=== PATIENT | female | born 1940 | race Caucasian/White ===

== ENCOUNTER 2022-03-20 08:59 | Inpatient (IN) ==
--- NOTE | 2022-03-20 09:54 | Emergency Department Note ---
SOB HPI General Chief Complaint: Shortness of Breath/Dyspnea Stated Complaint: SOB Time Seen by Provider: 03/20/22 09:33 Source: patient Mode of arrival: ambulatory Limitations: no limitations History of Present Illness HPI Narrative: Narrative: 81-year-old female history of asthma presents chief complaint of shortness of breath and cough productive of yellow-green sputum for the last week. She was seen by her primary doctor 2 days ago and prescribed doxycycline with no improvement in her symptoms peer denies any chest pain denies any fevers chills denies any headache or body aches denies any vomiting or diarrhea. Symptoms are worse with exertion. She has some chronic lower extremity edema which is uncha nged. Denies history of congestive heart failure. She has not been vaccinated against COVID-19 or influenza but did have a negative COVID-19 test at her doctor's office couple days ago. Related Data Previous Rx's Medication Instructions Recorded albuterol sulfate 90 mcg/actuation 2 puff INHALATION Q6H PRN #18 g 03/12/22 aerosol inhaler (ProAir HFA) hydrocodone 5 mg-acetaminophen 325 1 tab PO BID PRN #30 tab 03/14/22 mg tablet doxycycline hyclate 100 mg tablet 100 mg PO BID #20 tab 03/18/22 Allergies Allergy/AdvReac Type Severity Reaction Status Date / Time aspirin Allergy Severe Difficulty Verified 03/20/22 14:16 Breathing Review of Systems ROS ROS Narrative: Narrative: All systems ED: reviewed and negative except as stated. Constitutional: Denies fever, chills or sweats Eyes: Denies vision change ENT ED: Denies throat pain or congestion Cardiovascular: Reports as per HPI; Denies chest pain Gastrointestinal: Denies abdominal pain, vomiting or diarrhea Musculoskeletal: Denies back pain or joint pain Integumentary: Denies rash Neurological: Denies headache or dizziness Psychiatric: Denies anxiety, suicidal thoughts or homicidal thoughts Endocrine: Denies polydipsia or polyuria Hematological/Lymphatic: Denies easy bleeding or easy bruising [facility] Narrative Patient History Narrative: Narrative: Medical/Surgical/Family History All Active Problems (Updated 03/20/22 @ 13:39 by Maynor Ramírez MD) CHF (congestive heart failure) (Acute) Pneumonia (Acute) Acute bronchitis (Acute) Bilateral lower extremity edema (Acute) Edema (Acute) Essential hypertension (Acute) Medicare annual wellness visit, initial (Acute) Bilateral leg weakness (Acute) Left knee pain (Acute) Degenerative joint disease of both hips (Acute) Pelvic pain (Acute) Bilateral hip pain (Acute) Asthma (Chronic ~1972) Medical History Asthma (~1972) Bilateral leg weakness Left knee pain Medicare annual wellness visit, initial Surgical History H/O colonoscopy Dr. Goode History of tonsillectomy and adenoidectomy 194 Family History Father Non Hodgkin's lymphoma Mother H/O heart bypass surgery Social History Smoking Status: Never smoker Alcohol Intake Frequency: does not drink Substance Use: does not use Exam Narrative Narrative: Narrative: Vital Signs reviewed. Constitutional: Awake alert no acute distress well-nourished well-developed Head: Normocephalic, atraumatic Eyes: PERRLA, EOMI, no conjunctivitis Ear: Normal canals and TM's Oropharynx: moist oral mucosa, no edema, no erythema, no exudate Neck: Supple, no lymphadenopathy, no JVD Lungs: Breathing unlabored, diminished breath sounds with bibasilar crackles Cardiac: Regular rate and rhythm, normal distal pulses, GI: Soft nontender nondistended no guarding no rebound Musculoskeletal: No tenderness, no deformities, trace pedal edema chronic stasis changes in the legs full range of motion Back: no CVA or midline tenderness Neuro: Awake alert, cranial nerves II through XII grossly intact, no focal motor or sensory deficits Psychiatric: Normal mood and affect Skin: Warm dry no rash, cap refill less than 2 seconds General Limitations: no limitations Course Consultations Consultation #1: Discussed with hospitalist Dr. Parekh who agrees admit patient. Time: 13:49 Vital Signs Vital signs: Vital Signs Temperature 98.2 F 03/20/22 09:01 Pulse Rate 91 H 03/20/22 09:01 Respiratory Rate 18 03/20/22 09:01 Blood Pressure 164/93 03/20/22 09:01 Pulse Oximetry (%) 88 L 03/20/22 09:01 Temperature 98.2 F 03/20/22 09:01 Pulse Rate 81 03/20/22 15:01 Respiratory Rate 18 03/20/22 09:01 Blood Pressure 94/79 03/20/22 15:01 Pulse Oximetry (%) 99 03/20/22 15:01 MDM MDM Narrative Medical decision making narrative: Narrative: 81-year-old female with productive cough shortness of breath the last week seen her primary doctor 2 days ago was her on doxycycline. Symptoms did not improve was found to hypoxic on room air at the office. Patient put on 2 L nasal cannula with improvement in sats chest x-ray shows new onset CHF and bilateral infiltrates. proBNP slightly elevated troponin negative. EKG showed no acute ischemic changes. Patient received Rocephin and Lasix and will be admitted for the valuation treatment. Case discussed with the hospitalist Dr. Parekh who agrees admit patient. Differential Diagnosis Differential Diagnosis: Pneumonia bronchitis CHF, COVID-19 Lab Data Result diagrams: 03/20/22 10:10 03/20/22 10:10 Labs: Lab Results 03/20/22 03/20/22 03/20/22 Range/Units 10:10 10:10 10:10 WBC 10.5 (4.5-11.0) K/mcL RBC 4.07 (3.59-5.38) M/mcL Hgb 12.6 (11.2-15.7) g/dL Hct 37.7 (34.1-44.9) % MCV 92.6 (80.0-100.0) fL MCH 31.0 (26.0-34.0) pg MCHC 33.4 (31.0-36.0) g/dL RDW 13.1 (11.5-14.5) % Plt Count 404 (140-440) K/mcL MPV 9.8 (7.4-10.4) fL Seg Neutrophils % 78 (38-78) % Lymphocytes % 13 L (15-49) % Monocytes % (Manual) 9 (1-12) % Platelet Estimate Normal (Normal) RBC Morphology Normal (Normal) Sodium 130 L (133-145) mmol/L Potassium 4.1 (3.3-5.1) mmol/L Chloride 90 L (96-108) mmol/L Carbon Dioxide 29 (22-30) mmol/L Anion Gap 11.0 (8.0-16.0) BUN 5 L (8-23) mg/dL Creatinine 0.4 L (0.6-1.1) mg/dL GFR Calculation 97 Glucose 115 H (70-105) mg/dL Calcium 9.9 (8.6-10.4) mg/dL Total Bilirubin 0.4 (0.1-1.0) mg/dL AST 26 (<32) U/L ALT 23 (<40) U/L Alkaline Phosphatase 117 (39-117) U/L Troponin T < 0.01 (<0.03) ng/mL NT-Pro-B Natriuret Pep 581.7 H (<450.0) pg/mL Total Protein 6.9 (5.9-8.4) gm/dL Albumin 3.7 (3.2-5.2) gm/dL Globulin 3.2 (2.2-3.7) gm/dL Albumin/Globulin Ratio 1.2 (1.0-2.3) ED POC Tests ED POC Tests: SHANE - SARS Antigen Negative EKG Data EKG #1: EKG attestation: Yes I reviewed and interpreted this EKG. and Yes There are no EKG findings of acute coronary syndrome EKG results narrative: EKG performed at 936 shows sinus rhythm rate of 83 with normal axis PAC present short IN interval no acute ST changes Discharge Plan Patient/Caregiver Discharge Instructions Pt seen by FLUTE POLISHER/PA only: No Clinical Impression: CHF (congestive heart failure), Pneumonia Patient Disposition: Xfer As Inpt ([facility]) Condition: Good Discharge Date/Time: 03/20/22 15:29
--- NOTE | 2022-03-20 10:28 | XRay Report ---
CLINICAL INFORMATION: Dyspnea COMPARISON: Two-view chest x-ray 03/18/2022 TECHNIQUE: Portable FINDINGS: The heart is now borderline enlarged. Mediastinum is unremarkable. The pulmonary vessels are now mildly congested and there is mild interstitial edema throughout both lungs. Small patchy infiltrates in both lateral bases have progressed. There are small bilateral pleural effusions. Malunified old posterior right sixth rib fracture is seen as before. IMPRESSION: Mild CHF-new Moderate patchy infiltrates both lateral bases and small effusions-slight progression Moderate COPD Interpreted and Authenticated by: Matthew Lewis 03/20/22
[2022-03-20 11:42] LABS: Hematocrit 37.7 % (34.1-44.9); Hemoglobin 12.6 g/dL (11.2-15.7); Mean Cell Volume 92.6 fL (80.0-100.0); Mean Corpuscular HGB Conc 33.4 g/dL (31.0-36.0); Mean Platelet Volume 9.8 fL (7.4-10.4); Platelet Count 404 K/mcL (140-440); RBC 4.07 M/mcL (3.59-5.38); Red Cell Distribution Width 13.1 % (11.5-14.5); WBC 10.5 K/mcL (4.5-11.0)
[2022-03-20 11:52] LABS: proBNP 581.7 pg/mL (<450.0)
[2022-03-20 11:54] LABS: ALT/SGPT 23 U/L (<40); AST/SGOT 26 U/L (<32); Albumin 3.7 gm/dL (3.2-5.2); Albumin/Globulin Ratio 1.2 (1.0-2.3); Alkaline Phosphatase 117 U/L (39-117); Bilirubin,Total 0.4 mg/dL (0.1-1.0); Blood Urea Nitrogen 5 mg/dL (8-23); Calcium 9.9 mg/dL (8.6-10.4); Carbon Dioxide 29 mmol/L (22-30); Chloride 90 mmol/L (96-108); Globulin 3.2 gm/dL (2.2-3.7); Glomerular Filtration Rate 97; Glucose 115 mg/dL (70-105)
[2022-03-20 12:31] LABS: Lymphocytes % 13 % (15-49); Monocytes % (Manual) 9 % (1-12); Platelet Estimate NORMAL (Normal); RBC Morphology NORMAL (Normal); Segmented Neutrophils % 78 % (38-78)
[2022-03-20] MEDS ORDERED: cefTRIAXone 1 GM VIAL IV ONE (13:00)
[2022-03-20] MEDS ORDERED: FUROSEMIDE 40 MG/4 ML VIAL IV ONE (13:01)
[2022-03-20] MEDS ORDERED: ALBUTEROL SULFATE 2.5 MG/3 ML NEBULIZER NEB PRN (13:50)
[2022-03-20] MEDS ORDERED: MAG HYDROX/AL HYDROX/SIMETH 30 ML ORAL.SUSP PO PRN (13:50)
[2022-03-20] MEDS ORDERED: PROCHLORPERAZINE 10 MG/2 ML VIAL IV PRN (13:50)
[2022-03-20] MEDS ORDERED: ACETAMINOPHEN 325 MG TABLET PO PRN (13:50)
[2022-03-20] MEDS ORDERED: BISACODYL 10 MG SUPP.RECT PR PRN (13:50)
[2022-03-20] MEDS ORDERED: ONDANSETRON 4 MG/2 ML VIAL IV PRN (13:50)
[2022-03-20] MEDS ORDERED: MAGNESIUM HYDROXIDE 30 ML ORAL.SUSP PO PRN (13:50)
[2022-03-20] MEDS ORDERED: CALCIUM CARBONATE 500 MG TAB.CHEW CHEWED PRN (13:50)
[2022-03-20] MEDS: 0.9 % SODIUM CHLORIDE 10 ML SYRINGE IV SCH ×2 (16:35→20:21)
[2022-03-20] MEDS: AZITHROMYCIN 500 MG in DEXTROSE 5% IN WATER 250 ML IV SCH (16:58)
[2022-03-20] MEDS: IPRATROPIUM/ALBUTEROL 3 ML AMPUL.NEB NEB SCH (19:26)
[2022-03-20] MEDS: DOCUSATE SODIUM 100 MG CAPSULE PO SCH (20:22)
[2022-03-20] MEDS: SENNOSIDES 1 TABLET PO SCH (20:22)
[2022-03-20] MEDS ORDERED: DEXTROSE 31 GM ORAL.SUSP PO PRN (22:16)
[2022-03-20] MEDS ORDERED: traMADol 50 MG TABLET PO PRN (22:16)
[2022-03-20] MEDS ORDERED: QUEtiapine 25 MG TABLET PO PRN ×2 (22:16→22:38)
[2022-03-20] MEDS ORDERED: DEXTROSE 50% 50 ML VIAL IV PRN (22:16)
[2022-03-20] MEDS ORDERED: ZOLPIDEM 5 MG TABLET PO PRN (22:18)
[2022-03-20] MEDS ORDERED: INSULIN LISPRO 1 UNIT/0.01 ML UNIT SQ SCH (22:20)
[2022-03-20] MEDS ORDERED: hydrALAZINE 20 MG/ML VIAL IV PRN (22:38)
[2022-03-20] MEDS ORDERED: DILTIAZEM 25 MG/5 ML VIAL IV PRN (22:38)
[2022-03-21] MEDS: IPRATROPIUM/ALBUTEROL 3 ML AMPUL.NEB NEB SCH ×5 (01:19→18:53)
[2022-03-21] MEDS: 0.9 % SODIUM CHLORIDE 10 ML SYRINGE IV SCH ×3 (05:50→22:05)
[2022-03-21 07:16] LABS: ALT/SGPT 20 U/L (<40); AST/SGOT 22 U/L (<32); Albumin 3.5 gm/dL (3.2-5.2); Albumin/Globulin Ratio 1.3 (1.0-2.3); Alkaline Phosphatase 101 U/L (39-117); Bilirubin,Total 0.3 mg/dL (0.1-1.0); Blood Urea Nitrogen 6 mg/dL (8-23); Calcium 9.3 mg/dL (8.6-10.4); Carbon Dioxide 30 mmol/L (22-30); Chloride 88 mmol/L (96-108); Globulin 2.6 gm/dL (2.2-3.7); Glomerular Filtration Rate 97; Glucose 93 mg/dL (70-105)
--- NOTE | 2022-03-21 08:27 | EKG ---
[facility] Minor Care Test Date: 2022-03-20 Pat Name: Yvette Lopez Department: ED Room: Gender: Female Fresh Food Manager: CHALINO` : 1940 Requested By: Maynor Ramírez Order Number: [id number] Reading MD: Poncho Pedraza Measurements Intervals [place] Rate: 83 P: 84 OR: 94 QRS: 46 QRSD: 76 T: 49 QT: 350 QTc: 412 Interpretive Statements Sinus rhythm Atrial premature complex Short OR interval Electronically Signed On 03-21-2022 8:27:12 PDT by Poncho Pedraza /[facility]/M0/[id number].pdf
[2022-03-21 08:47] LABS: Basophils # (Auto) 0.05 K/mcL (0.00-0.30); Basophils % (Auto) 0.6 % (0.0-2.0); Eosinophils # (Auto) 0.08 K/mcL (0.00-0.70); Hematocrit 37.2 % (34.1-44.9); Hemoglobin 11.7 g/dL (11.2-15.7); Lymphocytes % (Auto) 8.3 % (15.5-49.0); Mean Cell Volume 97.6 fL (80.0-100.0); Mean Corpuscular HGB Conc 31.5 g/dL (31.0-36.0); Mean Platelet Volume 9.1 fL (7.4-10.4); Monocytes % (Auto) 11.9 % (1.0-12.0); Neutrophils % (Auto) 78.2 % (38.0-78.0); Platelet Count 363 K/mcL (140-440); RBC 3.81 M/mcL (3.59-5.38); Red Cell Distribution Width 13.2 % (11.5-14.5); WBC 8.4 K/mcL (4.5-11.0)
[2022-03-21] MEDS ORDERED: cefTRIAXone 2 GM in DEXTROSE 5% IN WATER 50 ML IV SCH (09:00)
[2022-03-21] MEDS: PANTOPRAZOLE 40 MG TABLET PO SCH (09:02)
[2022-03-21] MEDS: cefTRIAXone 2 GM in DEXTROSE 5% IN WATER 50 ML IV SCH (09:02)
[2022-03-21] MEDS: DOCUSATE SODIUM 100 MG CAPSULE PO SCH ×2 (09:03→22:06)
[2022-03-21] MEDS: ENOXAPARIN 40 MG/0.4 ML SYRINGE SQ SCH (09:08)
[2022-03-21] MEDS: AZITHROMYCIN 500 MG in DEXTROSE 5% IN WATER 250 ML IV SCH (11:18)
[2022-03-21] MEDS: predniSONE 20 MG TABLET PO SCH (12:55)
--- NOTE | 2022-03-21 14:38 | Internal Med History&Physical ---
HPI History of Present Illness Patient information: Note initiated : 03/20/22 at 2:37 pm Service Date, if different from initiated Date: 03/20/22 Patient: Yvette Lopez 81 y/o F admitted on 03/20/22 for Shortness of breath. Chief Complaint: [] History of present illness: Ms. Lopez is a 81 year old F This is a 81-year-old female with a history of chronic lower extremity edema, essential hypertension, previous history of reported pneumonia was brought to the ER with complaints of shortness of breath and productive cough and green- yellow sputum for the last 1 week patient was seen by the primary care provider 2 days ago started on doxycycline without any improvement and patient was transferred to the ER for further management upon arrival patient had history of chronic lower extremity edema no acute worsening patient denied any history congestive heart failure. Her work-up in the emergency room showed evidence of pneumonia on chest x-ray her proBNP was slightly elevated and also given 1 dose of Lasix in the ER and admitted for further management. Patient was hypoxic 87% on room air needing nasal cannula oxygen Review of systems Constitutional: No reported fatigue no chills, no fever Eyes: no vision changes or pain Cardiovascular: no chest pain, no palpitations Respiratory: no cough or dyspnea Gastrointestinal: no nausea and stil have abdominal discomfort. Genitourinary: no dysuria or difficulty voiding Musculoskeletal: no arthralgia or myalgia Integumentary: no skin lesion or wound Neurological: no focal weakness or numbness Psychiatric: no anxiety or depression Physical exam Head: No bruises, normal-appearing nontraumatic Eyes: normal appearance, no scleral icterus. Neck: full ROM Respiratory: Mild distress, crackles more on the left side Cardiovascular: normal rate and rhythm, S1, S2. GI/Abdominal: soft, nontender, no guarding. Extremities: full range of motion, nontender. Neurological: CN II-XII intact, intact motor, intact sensation. Psychiatric: normal mood. Skin: warm, normal color PFSH PFSH All Active Problems (Updated 03/20/22 @ 13:39 by Maynor Ramírez MD) CHF (congestive heart failure) (Acute) Pneumonia (Acute) Acute bronchitis (Acute) Bilateral lower extremity edema (Acute) Edema (Acute) Essential hypertension (Acute) Medicare annual wellness visit, initial (Acute) Bilateral leg weakness (Acute) Left knee pain (Acute) Degenerative joint disease of both hips (Acute) Pelvic pain (Acute) Bilateral hip pain (Acute) Asthma (Chronic ~1972) Medical History Asthma (~1972) Bilateral leg weakness Left knee pain Medicare annual wellness visit, initial Surgical History H/O colonoscopy Dr. Goode History of tonsillectomy and adenoidectomy 194 Family History Father Non Hodgkin's lymphoma Mother H/O heart bypass surgery Social History marital status: occupation: Real Estate other: Children-2 smoking status: Never smoker alcohol intake frequency: does not drink substance use type: does not use MEDS/ALLERGIES Home Medications and Allergies Home Medications Medication Instructions Recorded Confirmed Type albuterol sulfate 90 mcg/actuation 2 puff INHALATION Q6H PRN #18 g 03/12/22 03/21/22 Rx aerosol inhaler (ProAir HFA) hydrocodone 5 mg-acetaminophen 325 1 tab PO BID PRN #30 tab 03/14/22 03/21/22 Rx mg tablet doxycycline hyclate 100 mg tablet 100 mg PO BID #20 tab 03/18/22 03/21/22 Rx Allergies Allergy/AdvReac Type Severity Reaction Status Date / Time aspirin Allergy Severe Difficulty Verified 03/20/22 14:16 Breathing EXAM Constitutional Vitals: Temp Pulse Resp BP Pulse Ox 98.3 F 88 20 132/73 91 03/21/22 11:25 03/21/22 14:03 03/21/22 14:03 03/21/22 11:25 03/21/22 14:03 DATA Data Completed and Pending Labs: Labs from last 24 hours 03/21/22 03/21/22 03/21/22 07:34 05:48 05:48 WBC 8.4 TNP RBC 3.81 TNP Hgb 11.7 TNP Hct 37.2 TNP MCV 97.6 TNP MCH 30.7 TNP MCHC 31.5 TNP RDW 13.2 TNP Plt Count 363 TNP MPV 9.1 TNP Neut % (Auto) 78.2 H TNP Lymph % (Auto) 8.3 L TNP [place] % (Auto) 11.9 TNP Eos % (Auto) 1.0 TNP Baso % (Auto) 0.6 TNP Lymph # (Auto) 0.70 L TNP [place] # (Auto) 1.00 H TNP Eos # (Auto) 0.08 TNP Baso # (Auto) 0.05 TNP Absolute Neutrophils 6.58 TNP Differential Comment TNP Sodium 131 L Potassium 3.9 Chloride 88 L Carbon Dioxide 30 Anion Gap 13.0 BUN 6 L Creatinine 0.4 L GFR Calculation 97 Glucose 93 Calcium 9.3 Magnesium 1.9 Total Bilirubin 0.3 AST 22 ALT 20 Alkaline Phosphatase 101 Total Protein 6.1 Albumin 3.5 Globulin 2.6 Albumin/Globulin Ratio 1.3 Preliminary micro results at discharge 03/20/22 10:25 Blood Culture - Preliminary Blood 03/20/22 10:15 Blood Culture - Preliminary Blood 03/21/22 04:02 Gram Stain - Preliminary Sputum source - Induced A/P Narrative Plan of Treatment: Acute hypoxemic respiratory failure Community-acquired pneumonia History of chronic leg edema denied any history of CHF Mild leukocytosis increasing cough with the prior sputum production Procalcitonin elevated Sputum gram stain culture ordered Blood culture ordered in the ER COVID-19 PCR pending History of chronic leg edema No evidence of congestive heart failure Recent echocardiogram showing normal biventricular systolic function mild pulmonary hypertension otherwise unremarkable Essential hypertension Monitor her blood pressure and restart home medications Severe protein calorie malnutrition Encourage patient to good oral intake Follow-up with the dietitian DVT prophylaxis-subcu Lovenox CODE STATUS-full code Expect length of stay 2-3 midnights Time Spent With Patient Time: Total time spent is greater than 50% in coordination of care (as documented) at patient's floor/unit and/or counseling patient: Total time spent with greater than 50% in coordination of care (as documented) at patient's floor/unit and/or counseling patient:: 50 - 70 minutes Critical Care Time: No QUALITY VTE Deep Vein Thrombosis/Pulmonary Embolism Present on Admission: No
--- NOTE | 2022-03-21 14:39 | Internal Med Progress Note ---
SUBJECTIVE Subjective Patient information: Note initiated : 03/21/22 at 2:38 pm Service Date, if different from initiated Date: [] Patient: Yvette Lopez 81 y/o F admitted on 03/20/22 for Shortness of breath. Chief Complaint: [] Interval history: This is a 81-year-old female with a history of chronic lower extremity edema, essential hypertension, previous history of reported pneumonia was brought to the ER with complaints of shortness of breath and productive cough and green- yellow sputum for the last 1 week patient was seen by the primary care provider 2 days ago started on doxycycline without any improvement and patient was transferred to the ER for further management upon arrival patient had history of chronic lower extremity edema no acute worsening patient denied any history congestive heart failure. Her work-up in the emergency room showed evidence of pneumonia on chest x-ray her proBNP was slightly elevated and also given 1 dose of Lasix in the ER and admitted for further management. Patient was hypoxic 87% on room air needing nasal cannula oxygen 03/21 Oxygenation improving Patient is more alert awake answering questions Continued having cough improving Sputum culture blood culture pending Review of systems Constitutional: No reported fatigue no chills, no fever Eyes: no vision changes or pain Cardiovascular: no chest pain, no palpitations Respiratory: no cough or dyspnea Gastrointestinal: no nausea and stil have abdominal discomfort. Genitourinary: no dysuria or difficulty voiding Musculoskeletal: no arthralgia or myalgia Integumentary: no skin lesion or wound Neurological: no focal weakness or numbness Psychiatric: no anxiety or depression Physical exam Head: No bruises, normal-appearing nontraumatic Eyes: normal appearance, no scleral icterus. Neck: full ROM Respiratory: Mild distress, crackles more on the left side Cardiovascular: normal rate and rhythm, S1, S2. GI/Abdominal: soft, nontender, no guarding. Extremities: full range of motion, nontender. Neurological: CN II-XII intact, intact motor, intact sensation. Psychiatric: normal mood. Skin: warm, normal color Constitutional Vitals: Vital Signs Temp Pulse Resp BP Pulse Ox 98.3 F 88 20 132/73 91 03/21/22 11:25 03/21/22 14:03 03/21/22 14:03 03/21/22 11:25 03/21/22 14:03 Period Temp Pulse Resp BP Sys/Echavarria Pulse Ox Last 24 Hr 97.8 F-99.1 F 81-99 16-24 94-149/69-93 80-99 Intake and Output 03/21/22 03/21/22 03/21/22 05:59 13:59 21:59 Intake Total 1040 300 Output Total 2 Balance 1038 300 Weight 49.26 kg 49.26 kg Patient Weight 03/22/22 05:59 Weight 49.26 kg Intake & Output: Intake & Output 03/21/22 03/21/22 03/21/22 05:59 13:59 21:59 Intake Total 1040 300 Output Total 2 Balance 1038 300 Weight 49.26 kg 49.26 kg Intake: IV 300 Zithromax 500 mg In Dextrose 5% 250 in Water 250 ml @ 250 mls/hr IV Q24H BETO Rx#:[id number] Rocephin 2 gm In Dextrose 5% in 50 Water 50 ml @ 100 mls/hr IV Q24H BETO Rx#:[id number] Oral 1040 Output: # of times incontinent of urine 2 Other: Urine Appearance Clear Urine Color Bright Yellow Stool Size Small Small Stool Color Brown Brown Stool Consistency Soft Formed # Voids 1 1 # Bowel Movements 1 1 # of times incontinent of 0 Bowels OBJ DATA Labs CBC & Chem 7: 03/21/22 07:34 03/21/22 05:48 Labs: Abnormal Lab Results 03/21/22 03/21/22 03/20/22 07:34 05:48 10:10 Neut % (Auto) 78.2 H Lymph % (Auto) 8.3 L Lymph # (Auto) 0.70 L [place] # (Auto) 1.00 H Lymphocytes % Sodium 131 L 130 L Chloride 88 L 90 L BUN 6 L 5 L Creatinine 0.4 L 0.4 L Glucose 115 H NT-Pro-B Natriuret Pep 581.7 H 03/20/22 10:10 Neut % (Auto) Lymph % (Auto) Lymph # (Auto) [place] # (Auto) Lymphocytes % 13 L Sodium Chloride BUN Creatinine Glucose NT-Pro-B Natriuret Pep Meds: Medications Acetaminophen (Acetaminophen 325 Mg Tablet) 650 mg PO Q6HP PRN; Protocol PRN Reason: Per Pain Protocol/Fever > 101 Al Hydrox/Mg Hydrox/Simethicone (Mag Hydrox/Al Hydrox/Simeth 30 Ml Oral.Susp) 30 ml PO Q6HP PRN PRN Reason: Dyspepsia Albuterol Sulfate (Albuterol Sulfate 2.5 Mg/3 Ml Nebulizer) 2.5 mg NEB Q2HP PRN PRN Reason: Shortness Of Breath Albuterol/Ipratropium (Ipratropium/Albuterol 3 Ml Ampul.Neb) 3 ml NEB Q6HRT [facility] Last Admin: 03/21/22 14:01 Dose: 3 ml Documented by: Bisacodyl (Bisacodyl 10 Mg Supp.Rect) [address] Q2-3DAYS PRN PRN Reason: Constipation Calcium Carbonate/Glycine (Calcium Carbonate 500 Mg Tab.Chew) 1,000 mg CHEWED Q4HP PRN PRN Reason: Dyspepsia Diltiazem HCl (Diltiazem 25 Mg/5 Ml Vial) 10 mg IV Q4HP PRN PRN Reason: Tachyarrhythmias Docusate Sodium (Docusate Sodium 100 Mg Capsule) 100 mg PO BID [facility] Last Admin: 03/21/22 09:03 Dose: Not Given Documented by: Enoxaparin Sodium (Enoxaparin 40 Mg/0.4 Ml Syringe) 40 mg SQ DAILY [facility] Last Admin: 03/21/22 09:08 Dose: 40 mg Documented by: Hydralazine HCl (Hydralazine 20 Mg/Ml Vial) 10 mg IV Q4-6HP PRN PRN Reason: Hypertension Azithromycin 500 mg/ Dextrose 250 mls @ 250 mls/hr IV Q24H [facility]; Protocol Stop: 03/22/22 15:59 Last Infusion: 03/21/22 12:20 Dose: Infused Documented by: Ceftriaxone Sodium 2 gm/ (Dextrose) 50 mls @ 100 mls/hr IV Q24H [facility] Last Infusion: 03/21/22 09:35 Dose: Infused Documented by: Magnesium Hydroxide (Magnesium Hydroxide 30 Ml Oral.Susp) 30 ml PO DAILYP PRN PRN Reason: Constipation Melatonin (Melatonin 3 Mg Tablet) 3 mg PO HSP PRN PRN Reason: Insomnia Ondansetron HCl (Ondansetron 4 Mg/2 Ml Vial) 4 mg IV Q6HP PRN PRN Reason: Nausea And Vomiting Pantoprazole Sodium (Pantoprazole 40 Mg Tablet) 40 mg PO QAMAC [facility] Last Admin: 03/21/22 09:02 Dose: 40 mg Documented by: Pred[facility]one ([facility] 20 Mg Tablet) [facility] Admin: 03/21/22 12:55 Dose: 20 mg Documented by: Prochlorperazine (Prochlorperazine 10 Mg/2 Ml Vial) 5 mg IV Q4HP PRN PRN Reason: Nausea And Vomiting Quetiapine Fumarate (Quetiapine 25 Mg Tablet) 12.5 mg PO HSP PRN PRN Reason: iNSOMNIA-2nd option Senna (Sennosides 1 Tablet) 2 tab PO [facility] Last Admin: 03/20/22 20:22 Dose: Not Given Documented by: Sodium Chloride (0.9 % Sodium Chloride 10 Ml Syringe) 10 ml IV Q8 [facility] Last Admin: 03/21/22 05:50 Dose: 10 ml Documented by: A/P Narrative Plan of Treatment: Acute hypoxemic respiratory failure Community-acquired pneumonia History of chronic leg edema denied any history of CHF Mild leukocytosis increasing cough with the prior sputum production Continue ceftriaxone and azithromycin Continue weaning her oxygen need Procalcitonin elevated Sputum gram stain culture ordered Blood culture ordered in the ER COVID-19 PCR pending History of chronic leg edema No evidence of congestive heart failure Recent echocardiogram showing normal biventricular systolic function mild pulmonary hypertension otherwise unremarkable Essential hypertension Monitor her blood pressure and restart home medications Severe protein calorie malnutrition Encourage patient to good oral intake Follow-up with the dietitian DVT prophylaxis-subcu Lovenox CODE STATUS-full code Expect length of stay 2-3 midnights Time Spent With Patient Time: Total time spent is greater than 50% in coordination of care (as documented) at patient's floor/unit and/or counseling patient: QUALITY VTE Deep Vein Thrombosis/Pulmonary Embolism Present on Admission: No
[2022-03-21] MEDS: HYDROcodone/APAP 5/325MG TABLET PO PRN (22:04)
[2022-03-21] MEDS: MELATONIN 3 MG TABLET PO PRN (22:04)
[2022-03-21] MEDS: SENNOSIDES 1 TABLET PO SCH (22:06)
[2022-03-21] MEDS ORDERED: HYDROcodone/APAP 5/325MG TABLET PO ONE (22:09)
[2022-03-22] MEDS: IPRATROPIUM/ALBUTEROL 3 ML AMPUL.NEB NEB SCH ×4 (00:45→19:53)
[2022-03-22] MEDS: 0.9 % SODIUM CHLORIDE 10 ML SYRINGE IV SCH ×3 (05:49→21:41)
[2022-03-22 06:32] LABS: Basophils # (Auto) 0.04 K/mcL (0.00-0.30); Basophils % (Auto) 0.4 % (0.0-2.0); Eosinophils # (Auto) 0.03 K/mcL (0.00-0.70); Eosinophils % (Auto) 0.3 % (0.0-7.0); Hematocrit 36.8 % (34.1-44.9); Hemoglobin 12.1 g/dL (11.2-15.7); Lymphocytes # (Auto) 1.03 K/mcL (1.50-4.80); Lymphocytes % (Auto) 11.2 % (15.5-49.0); Mean Cell Volume 92.9 fL (80.0-100.0); Mean Corpuscular HGB Conc 32.9 g/dL (31.0-36.0); Mean Platelet Volume 9.2 fL (7.4-10.4); Monocytes # (Auto) 0.69 K/mcL (0.10-0.90); Monocytes % (Auto) 7.5 % (1.0-12.0); Neutrophils % (Auto) 80.6 % (38.0-78.0); Platelet Count 420 K/mcL (140-440); RBC 3.96 M/mcL (3.59-5.38); Red Cell Distribution Width 12.7 % (11.5-14.5); WBC 9.2 K/mcL (4.5-11.0)
[2022-03-22 06:58] LABS: ALT/SGPT 20 U/L (<40); AST/SGOT 23 U/L (<32); Albumin 3.4 gm/dL (3.2-5.2); Albumin/Globulin Ratio 1.2 (1.0-2.3); Alkaline Phosphatase 89 U/L (39-117); Bilirubin,Total 0.2 mg/dL (0.1-1.0); Blood Urea Nitrogen 11 mg/dL (8-23); Calcium 9.5 mg/dL (8.6-10.4); Carbon Dioxide 31 mmol/L (22-30); Chloride 87 mmol/L (96-108); Globulin 2.9 gm/dL (2.2-3.7); Glomerular Filtration Rate 97; Glucose 97 mg/dL (70-105)
[2022-03-22] MEDS: PANTOPRAZOLE 40 MG TABLET PO SCH (07:03)
[2022-03-22] MEDS: predniSONE 20 MG TABLET PO SCH (09:42)
[2022-03-22] MEDS: ENOXAPARIN 40 MG/0.4 ML SYRINGE SQ SCH (09:42)
[2022-03-22] MEDS: cefTRIAXone 2 GM in DEXTROSE 5% IN WATER 50 ML IV SCH (09:42)
[2022-03-22] MEDS: DOCUSATE SODIUM 100 MG CAPSULE PO SCH ×2 (10:26→21:41)
[2022-03-22] MEDS: AZITHROMYCIN 500 MG in DEXTROSE 5% IN WATER 250 ML IV SCH (10:27)
--- NOTE | 2022-03-22 14:53 | Internal Med Progress Note ---
SUBJECTIVE Subjective Patient information: Note initiated : 03/22/22 at 2:53 pm Service Date, if different from initiated Date: [] Patient: Yvette Lopez 81 y/o F admitted on 03/20/22 for Shortness of breath. Chief Complaint: [] Interval history: 81-year-old female with a history of chronic lower extremity edema, essential hypertension, previous history of reported pneumonia was brought to the ER with complaints of shortness of breath and productive cough and green-yellow sputum for the last 1 week patient was seen by the primary care provider 2 days ago started on doxycycline without any improvement and patient was transferred to the ER for further management upon arrival patient had history of chronic lower extremity edema no acute worsening patient denied any history congestive heart failure. Her work-up in the emergency room showed evidence of pneumonia on chest x-ray her proBNP was slightly elevated and also given 1 dose of Lasix in the ER and admitted for further management. Patient was hypoxic 87% on room air needing nasal cannula oxygen 03/21 Oxygenation improving Patient is more alert awake answering questions Continued having cough improving Sputum culture blood culture pending 03/22 Patient oxygenation improving Still needing 2 to 3 L of nasal cannula oxygen Started prednisone 20 mg daily yesterday Continued DuoNebs and albuterol Review of systems Constitutional: No reported fatigue no chills, no fever Eyes: no vision changes or pain Cardiovascular: no chest pain, no palpitations Respiratory: Cough and dyspnea and some yellow sputum production improved but still having thick secretions Gastrointestinal: no nausea and stil have abdominal discomfort. Genitourinary: no dysuria or difficulty voiding Musculoskeletal: no arthralgia or myalgia Integumentary: no skin lesion or wound Neurological: no focal weakness or numbness Psychiatric: no anxiety or depression Physical exam Head: No bruises, normal-appearing nontraumatic Eyes: normal appearance, no scleral icterus. Neck: full ROM Respiratory: Crackles-improving Cardiovascular: normal rate and rhythm, S1, S2. GI/Abdominal: soft, nontender, no guarding. Extremities: full range of motion, nontender. Neurological: CN II-XII intact, intact motor, intact sensation. Psychiatric: normal mood. Skin: warm, normal color Constitutional Vitals: Vital Signs Temp Pulse Resp BP Pulse Ox 97.5 F 70 16 145/81 94 03/22/22 11:53 03/22/22 13:30 03/22/22 13:30 03/22/22 11:53 03/22/22 13:30 Period Temp Pulse Resp BP Sys/Echavarria Pulse Ox Last 24 Hr 97.1 F-99.4 F 70-87 14-20 124-151/67-84 90-100 Intake and Output 03/22/22 03/22/22 03/22/22 05:59 13:59 21:59 Intake Total 1600 850 Balance 1600 850 Intake & Output: Intake & Output 03/22/22 03/22/22 03/22/22 05:59 13:59 21:59 Intake Total 1600 850 Balance 1600 850 Intake: IV 50 Rocephin 2 gm In Dextrose 5% in 50 Water 50 ml @ 100 mls/hr IV Q24H [facility] Rx#:[id number] Oral 1600 800 Other: Stool Size Moderate Stool Color Brown Stool Consistency Soft # Voids 3 # Bowel Movements 1 OBJ DATA Labs CBC & Chem 7: 03/22/22 05:45 03/22/22 05:45 Labs: Abnormal Lab Results 03/22/22 03/22/22 03/21/22 05:45 05:45 07:34 Neut % (Auto) 80.6 H 78.2 H Lymph % (Auto) 11.2 L 8.3 L Lymph # (Auto) 1.03 L 0.70 L [place] # (Auto) 1.00 H Lymphocytes % Sodium 129 L Chloride 87 L Carbon Dioxide 31 H BUN Creatinine 0.4 L Glucose NT-Pro-B Natriuret Pep 03/21/22 03/20/22 03/20/22 05:48 10:10 10:10 Neut % (Auto) Lymph % (Auto) Lymph # (Auto) [place] # (Auto) Lymphocytes % 13 L Sodium 131 L 130 L Chloride 88 L 90 L Carbon Dioxide BUN 6 L 5 L Creatinine 0.4 L 0.4 L Glucose 115 H NT-Pro-B Natriuret Pep 581.7 H Meds: Medications Acetaminophen (Acetaminophen 325 Mg Tablet) 650 mg PO Q6HP PRN; Protocol PRN Reason: Per Pain Protocol/Fever > 101 Hydrocodone Bitart/Acetaminophen (Hydrocodone/Apap 5/325mg Tablet) 1 tab PO Q6HP PRN; Protocol PRN Reason: Per Pain Protocol Last Admin: 03/21/22 22:04 Dose: 1 tab Documented by: Al Hydrox/Mg Hydrox/Simethicone (Mag Hydrox/Al Hydrox/Simeth 30 Ml Oral.Susp) 30 ml PO Q6HP PRN PRN Reason: Dyspepsia Albuterol Sulfate (Albuterol Sulfate 2.5 Mg/3 Ml Nebulizer) 2.5 mg NEB Q2HP PRN PRN Reason: Shortness Of Breath Albuterol/Ipratropium (Ipratropium/Albuterol 3 Ml Ampul.Neb) 3 ml NEB Q6HRT [facility] Last Admin: 03/22/22 13:29 Dose: 3 ml Documented by: Bisacodyl (Bisacodyl 10 Mg Supp.Rect) 10 mg [place] Q2-3DAYS PRN PRN Reason: Constipation Calcium Carbonate/Glycine (Calcium Carbonate 500 Mg Tab.Chew) 1,000 mg CHEWED Q4HP PRN PRN Reason: Dyspepsia Diltiazem HCl (Diltiazem 25 Mg/5 Ml Vial) 10 mg IV Q4HP PRN PRN Reason: Tachyarrhythmias Docusate Sodium (Docusate Sodium 100 Mg Capsule) 100 mg PO BID [facility] Last Admin: 03/22/22 10:26 Dose: Not Given Documented by: Enoxaparin Sodium (Enoxaparin 40 Mg/0.4 Ml Syringe) 40 mg SQ DAILY [facility] Last Admin: 03/22/22 09:42 Dose: 40 mg Documented by: Hydralazine HCl (Hydralazine 20 Mg/Ml Vial) 10 mg IV Q4-6HP PRN PRN Reason: Hypertension Azithromycin 500 mg/ Dextrose 250 mls @ 250 mls/hr IV Q24H [facility]; Protocol Stop: 03/22/22 15:59 Last Admin: 03/22/22 10:27 Dose: 250 mls/hr Documented by: Ceftriaxone Sodium 2 gm/ (Dextrose) 50 mls @ 100 mls/hr IV Q24H [facility] Last Infusion: 03/22/22 10:12 Dose: Infused Documented by: Magnesium Hydroxide (Magnesium Hydroxide 30 Ml Oral.Susp) 30 ml PO DAILYP PRN PRN Reason: Constipation Melatonin (Melatonin 3 Mg Tablet) 3 mg PO HSP PRN PRN Reason: Insomnia Last Admin: 03/21/22 22:04 Dose: 3 mg Documented by: Ondansetron HCl (Ondansetron 4 Mg/2 Ml Vial) 4 mg IV Q6HP PRN PRN Reason: Nausea And Vomiting Pantoprazole Sodium (P[facility]razole 40 Mg Tablet) [facility] Last Admin: 03/22/22 07:03 Dose: Not Given Documented by: Prednisone (Prednisone 20 Mg Tablet) [facility] Last Admin: 03/22/22 09:42 Dose: 20 mg Documented by: Prochlorperazine (Prochlorperazine 10 Mg/2 Ml Vial) 5 mg IV Q4HP PRN PRN Reason: Nausea And Vomiting Quetiapine Fumarate (Quetiapine 25 Mg Tablet) 12.5 mg PO HSP PRN PRN Reason: iNSOMNIA-2nd option Senna (Sennosides 1 Tablet) 2 tab PO [facility] Last Admin: 03/21/22 22:06 Dose: Not Given Documented by: Sodium Chloride (0.9 % Sodium Chloride 10 Ml Syringe) 10 ml IV Q8 [facility] Last Admin: 03/22/22 14:50 Dose: 10 ml Documented by: A/P Narrative Plan of Treatment: Acute hypoxemic respiratory failure Community-acquired pneumonia Probable COPD History of chronic leg edema denied any history of CHF She presented with a yellow-green sputum worsening cough and hypoxia Continue ceftriaxone and azithromycin Continue weaning her oxygen need Procalcitonin elevated Sputum gram stain qtazkrv-byed-vfekxxfr coccobacilli-further sensitivity pending Blood cultures so far negative COVID-19 PCR negative History of chronic leg edema No evidence of congestive heart failure Recent echocardiogram showing normal biventricular systolic function mild pulmonary hypertension otherwise unremarkable Essential hypertension Monitor her blood pressure and restart home medications Severe protein calorie malnutrition Encourage patient to good oral intake Follow-up with the dietitian DVT prophylaxis-subcu Lovenox CODE STATUS-full code Expect length of stay 1-2 midnights Time Spent With Patient Time: Total time spent is greater than 50% in coordination of care (as documented) at patient's floor/unit and/or counseling patient: QUALITY VTE Deep Vein Thrombosis/Pulmonary Embolism Present on Admission: No
[2022-03-22] MEDS: HYDROcodone/APAP 5/325MG TABLET PO PRN (19:58)
[2022-03-22] MEDS: MELATONIN 3 MG TABLET PO PRN (19:58)
[2022-03-22] MEDS: SENNOSIDES 1 TABLET PO SCH (21:41)
[2022-03-23] MEDS: IPRATROPIUM/ALBUTEROL 3 ML AMPUL.NEB NEB SCH ×4 (00:50→19:17)
[2022-03-23] MEDS: 0.9 % SODIUM CHLORIDE 10 ML SYRINGE IV SCH ×3 (05:40→20:42)
[2022-03-23 06:45] LABS: Basophils # (Auto) 0.07 K/mcL (0.00-0.30); Basophils % (Auto) 0.8 % (0.0-2.0); Eosinophils % (Auto) 1.1 % (0.0-7.0); Hematocrit 35.9 % (34.1-44.9); Hemoglobin 11.6 g/dL (11.2-15.7); Lymphocytes # (Auto) 1.48 K/mcL (1.50-4.80); Lymphocytes % (Auto) 15.9 % (15.5-49.0); Mean Cell Volume 94.7 fL (80.0-100.0); Mean Corpuscular HGB Conc 32.3 g/dL (31.0-36.0); Mean Platelet Volume 9.2 fL (7.4-10.4); Monocytes # (Auto) 0.84 K/mcL (0.10-0.90); Monocytes % (Auto) 9.1 % (1.0-12.0); Neutrophils % (Auto) 73.1 % (38.0-78.0); Platelet Count 433 K/mcL (140-440); RBC 3.79 M/mcL (3.59-5.38); WBC 9.3 K/mcL (4.5-11.0)
[2022-03-23 07:01] LABS: ALT/SGPT 18 U/L (<40); AST/SGOT 19 U/L (<32); Albumin 3.3 gm/dL (3.2-5.2); Albumin/Globulin Ratio 1.3 (1.0-2.3); Alkaline Phosphatase 78 U/L (39-117); Bilirubin,Total 0.2 mg/dL (0.1-1.0); Blood Urea Nitrogen 13 mg/dL (8-23); Calcium 9.4 mg/dL (8.6-10.4); Carbon Dioxide 32 mmol/L (22-30); Chloride 93 mmol/L (96-108); Globulin 2.5 gm/dL (2.2-3.7); Glomerular Filtration Rate 97; Glucose 109 mg/dL (70-105)
[2022-03-23] MEDS: PANTOPRAZOLE 40 MG TABLET PO SCH (08:03)
[2022-03-23] MEDS: predniSONE 20 MG TABLET PO SCH (08:39)
[2022-03-23] MEDS: ENOXAPARIN 40 MG/0.4 ML SYRINGE SQ SCH (08:40)
[2022-03-23] MEDS: DOCUSATE SODIUM 100 MG CAPSULE PO SCH ×2 (08:40→20:38)
[2022-03-23] MEDS: cefTRIAXone 2 GM in DEXTROSE 5% IN WATER 50 ML IV SCH (08:41)
--- NOTE | 2022-03-23 13:15 | Internal Med Progress Note ---
SUBJECTIVE Subjective Patient information: Note initiated : 03/23/22 at 1:15 pm Service Date, if different from initiated Date: [] Patient: Yvette Lopez 81 y/o F admitted on 03/20/22 for Shortness of breath. Chief Complaint: [] Interval history: 81-year-old female with a history of chronic lower extremity edema, essential hypertension, previous history of reported pneumonia was brought to the ER with complaints of shortness of breath and productive cough and green-yellow sputum for the last 1 week patient was seen by the primary care provider 2 days ago started on doxycycline without any improvement and patient was transferred to the ER for further management upon arrival patient had history of chronic lower extremity edema no acute worsening patient denied any history congestive heart failure. Her work-up in the emergency room showed evidence of pneumonia on chest x-ray her proBNP was slightly elevated and also given 1 dose of Lasix in the ER and admitted for further management. Patient was hypoxic 87% on room air needing nasal cannula oxygen 03/21 Oxygenation improving Patient is more alert awake answering questions Continued having cough improving Sputum culture blood culture pending 03/22 Patient oxygenation improving Still needing 2 to 3 L of nasal cannula oxygen Started prednisone 20 mg daily yesterday Continued DuoNebs and albuterol 03/23 Patient continued to be hypoxic with activities her oxygenation went down to 70s with a without oxygen Patient appears to be very weak and probably needing rehab next Review of systems Constitutional: No reported fatigue no chills, no fever Eyes: no vision changes or pain Cardiovascular: no chest pain, no palpitations Respiratory: Cough and dyspnea and some yellow sputum production improved but still having thick secretions Gastrointestinal: no nausea and stil have abdominal discomfort. Genitourinary: no dysuria or difficulty voiding Musculoskeletal: no arthralgia or myalgia Integumentary: no skin lesion or wound Neurological: no focal weakness or numbness Psychiatric: no anxiety or depression Physical exam Head: No bruises, normal-appearing nontraumatic Eyes: normal appearance, no scleral icterus. Neck: full ROM Respiratory: Crackles-improving Cardiovascular: normal rate and rhythm, S1, S2. GI/Abdominal: soft, nontender, no guarding. Extremities: full range of motion, nontender. Neurological: CN II-XII intact, intact motor, intact sensation. Psychiatric: normal mood. Skin: warm, normal color Constitutional Vitals: Vital Signs Temp Pulse Resp BP Pulse Ox 97 F 83 16 141/79 93 03/23/22 11:43 03/23/22 11:43 03/23/22 11:43 03/23/22 11:43 03/23/22 11:43 Period Temp Pulse Resp BP Sys/Echavarria Pulse Ox Last 24 Hr 97 F-98.4 F 70-86 15-20 132-149/70-85 92-100 Intake and Output 03/22/22 03/23/22 03/23/22 21:59 05:59 13:59 Intake Total 1600 600 Balance 1600 600 Weight 47.673 kg Intake & Output: Intake & Output 03/22/22 03/23/22 03/23/22 21:59 05:59 13:59 Intake Total 1600 600 Balance 1600 600 Weight 47.673 kg Intake: Oral 1600 600 Other: Stool Size Moderate Stool Consistency Soft Formed # Voids 3 OBJ DATA Labs CBC & Chem 7: 03/23/22 05:43 03/23/22 05:43 Labs: Abnormal Lab Results 03/23/22 03/23/22 03/22/22 05:43 05:43 05:45 Neut % (Auto) Lymph % (Auto) Lymph # (Auto) 1.48 L [place] # (Auto) Sodium 129 L Chloride 93 L 87 L Carbon Dioxide 32 H 31 H BUN Creatinine 0.4 L 0.4 L Glucose 109 H Total Protein 5.8 L 03/22/22 03/21/22 03/21/22 05:45 07:34 05:48 Neut % (Auto) 80.6 H 78.2 H Lymph % (Auto) 11.2 L 8.3 L Lymph # (Auto) 1.03 L 0.70 L [place] # (Auto) 1.00 H Sodium 131 L Chloride 88 L Carbon Dioxide BUN 6 L Creatinine 0.4 L Glucose Total Protein Meds: Medications Acetaminophen (Acetaminophen 325 Mg Tablet) 650 mg PO Q6HP PRN; Protocol PRN Reason: Per Pain Protocol/Fever > 101 Hydrocodone Bitart/Acetaminophen (Hydrocodone/Apap 5/325mg Tablet) 1 tab PO Q6HP PRN; Protocol PRN Reason: Per Pain Protocol Last Admin: 03/22/22 19:58 Dose: 1 tab Documented by: Al Hydrox/Mg Hydrox/Simethicone (Mag Hydrox/Al Hydrox/Simeth 30 Ml Oral.Susp) 30 ml PO Q6HP PRN PRN Reason: Dyspepsia Albuterol Sulfate (Albuterol Sulfate 2.5 Mg/3 Ml Nebulizer) 2.5 mg NEB Q2HP PRN PRN Reason: Shortness Of Breath Albuterol/Ipratropium (Ipratropium/Albuterol 3 Ml Ampul.Neb) 3 ml NEB Q6HRT [facility] Last Admin: 03/23/22 06:35 Dose: 3 ml Documented by: Bisacodyl (Bisacodyl 10 Mg Supp.Rect) 10 mg [place] Q2-3DAYS PRN PRN Reason: Constipation Calcium Carbonate/Glycine (Calcium Carbonate 500 Mg Tab.Chew) 1,000 mg CHEWED Q4HP PRN PRN Reason: Dyspepsia Diltiazem HCl (Diltiazem 25 Mg/5 Ml Vial) 10 mg IV Q4HP PRN PRN Reason: Tachyarrhythmias Docusate Sodium (Docusate Sodium 100 Mg Capsule) 100 mg PO BID [facility] Last Admin: 03/23/22 08:40 Dose: Not Given Documented by: Enoxaparin Sodium (Enoxaparin 40 Mg/0.4 Ml Syringe) 40 mg SQ DAILY [facility] Last Admin: 03/23/22 08:40 Dose: Not Given Documented by: Hydralazine HCl (Hydralazine 20 Mg/Ml Vial) 10 mg IV Q4-6HP PRN PRN Reason: Hypertension Ceftriaxone Sodium 2 gm/ (Dextrose) 50 mls @ 100 mls/hr IV Q24H [facility] Last Admin: 03/23/22 08:41 Dose: 100 mls/hr Documented by: Magnesium Hydroxide (Magnesium Hydroxide 30 Ml Oral.Susp) 30 ml PO DAILYP PRN PRN Reason: Constipation Melatonin (Melatonin 3 Mg Tablet) 3 mg PO HSP PRN PRN Reason: Insomnia Last Admin: 03/22/22 19:58 Dose: 3 mg Documented by: Ondansetron HCl (Ondansetron 4 Mg/2 Ml Vial) 4 mg IV Q6HP PRN PRN Reason: Nausea And Vomiting Pantoprazole Sodium (Pantoprazole 40 Mg Tablet) [facility] Last Admin: 03/23/22 08:03 Dose: Not Given Documented by: Prednisone (Prednisone 20 Mg Tablet) 20 mg PO [facility] Last Admin: 03/23/22 08:39 Dose: 20 mg Documented by: Prochlorperazine (Prochlorperazine 10 Mg/2 Ml Vial) 5 mg IV Q4HP PRN PRN Reason: Nausea And Vomiting Quetiapine Fumarate (Quetiapine 25 Mg Tablet) 12.5 mg PO HSP PRN PRN Reason: iNSOMNIA-2nd option Senna (Sennosides 1 Tablet) 2 tab PO HS [facility] Last Admin: 03/22/22 21:41 Dose: Not Given Documented by: Sodium Chloride (0.9 % Sodium Chloride 10 Ml Syringe) 10 ml IV Q8 [facility] Last Admin: 03/23/22 05:40 Dose: Not Given Documented by: A/P Narrative Plan of Treatment: Acute hypoxemic respiratory failure Community-acquired pneumonia Obstructive airway disease-exacerbation History of chronic leg edema denied any history of CHF She presented with a yellow-green sputum worsening cough and hypoxia Continue ceftriaxone and azithromycin Continue weaning her oxygen need Procalcitonin elevated Sputum gram stain legysqs-obpm-sficuuio coccobacilli-further sensitivity pending Blood cultures so far negative COVID-19 PCR negative History of chronic leg edema No evidence of congestive heart failure Recent echocardiogram showing normal biventricular systolic function mild pulmonary hypertension otherwise unremarkable Essential hypertension Monitor her blood pressure and restart home medications Severe protein calorie malnutrition Encourage patient to good oral intake Follow-up with the dietitian DVT prophylaxis-subcu Lovenox CODE STATUS-full code Expect length of stay 1-2 midnights Discharge plan-probably need SNF versus home health Time Spent With Patient Time: Total time spent is greater than 50% in coordination of care (as documented) at patient's floor/unit and/or counseling patient: QUALITY VTE Deep Vein Thrombosis/Pulmonary Embolism Present on Admission: No
[2022-03-23] MEDS: SENNOSIDES 1 TABLET PO SCH (20:38)
[2022-03-23] MEDS: HYDROcodone/APAP 5/325MG TABLET PO PRN (22:18)
[2022-03-23] MEDS: MELATONIN 3 MG TABLET PO PRN (22:19)
[2022-03-24] MEDS: IPRATROPIUM/ALBUTEROL 3 ML AMPUL.NEB NEB SCH ×5 (00:26→19:26)
[2022-03-24] MEDS: 0.9 % SODIUM CHLORIDE 10 ML SYRINGE IV SCH ×3 (06:04→20:06)
[2022-03-24 06:54] LABS: Basophils # (Auto) 0.05 K/mcL (0.00-0.30); Basophils % (Auto) 0.6 % (0.0-2.0); Eosinophils # (Auto) 0.17 K/mcL (0.00-0.70); Eosinophils % (Auto) 1.9 % (0.0-7.0); Hemoglobin 10.9 g/dL (11.2-15.7); Lymphocytes # (Auto) 1.59 K/mcL (1.50-4.80); Lymphocytes % (Auto) 17.6 % (15.5-49.0); Mean Corpuscular HGB Conc 31.1 g/dL (31.0-36.0); Mean Platelet Volume 9.2 fL (7.4-10.4); Monocytes # (Auto) 0.93 K/mcL (0.10-0.90); Monocytes % (Auto) 10.3 % (1.0-12.0); Neutrophils % (Auto) 69.6 % (38.0-78.0); Platelet Count 419 K/mcL (140-440); RBC 3.61 M/mcL (3.59-5.38); Red Cell Distribution Width 13.1 % (11.5-14.5)
[2022-03-24] MEDS: DOCUSATE SODIUM 100 MG CAPSULE PO SCH ×2 (07:22→19:53)
[2022-03-24] MEDS: PANTOPRAZOLE 40 MG TABLET PO SCH (07:22)
[2022-03-24] MEDS: ENOXAPARIN 40 MG/0.4 ML SYRINGE SQ SCH (07:24)
[2022-03-24 07:31] LABS: ALT/SGPT 17 U/L (<40); AST/SGOT 19 U/L (<32); Albumin 3.4 gm/dL (3.2-5.2); Albumin/Globulin Ratio 1.7 (1.0-2.3); Alkaline Phosphatase 67 U/L (39-117); Bilirubin,Total < 0.2 mg/dL (0.1-1.0); Blood Urea Nitrogen 15 mg/dL (8-23); Calcium 9.2 mg/dL (8.6-10.4); Carbon Dioxide 32 mmol/L (22-30); Chloride 95 mmol/L (96-108); Glomerular Filtration Rate 91; Glucose 93 mg/dL (70-105)
[2022-03-24] MEDS: cefTRIAXone 2 GM in DEXTROSE 5% IN WATER 50 ML IV SCH (09:09)
[2022-03-24] MEDS: predniSONE 20 MG TABLET PO SCH (09:09)
--- NOTE | 2022-03-24 10:01 | Internal Med Progress Note ---
SUBJECTIVE Subjective Patient information: Note initiated : 03/24/22 at 10:01 am Service Date, if different from initiated Date: [] Patient: Yvette Lopez 81 y/o F admitted on 03/20/22 for Shortness of breath. Chief Complaint: [] Interval history: 81-year-old female with a history of chronic lower extremity edema, essential hypertension, previous history of reported pneumonia was brought to the ER with complaints of shortness of breath and productive cough and green-yellow sputum for the last 1 week patient was seen by the primary care provider 2 days ago started on doxycycline without any improvement and patient was transferred to the ER for further management upon arrival patient had history of chronic lower extremity edema no acute worsening patient denied any history congestive heart failure. Her work-up in the emergency room showed evidence of pneumonia on chest x-ray her proBNP was slightly elevated and also given 1 dose of Lasix in the ER and admitted for further management. Patient was hypoxic 87% on room air needing nasal cannula oxygen 03/21 Oxygenation improving Patient is more alert awake answering questions Continued having cough improving Sputum culture blood culture pending 03/22 Patient oxygenation improving Still needing 2 to 3 L of nasal cannula oxygen Started prednisone 20 mg daily yesterday Continued DuoNebs and albuterol 03/23 Patient continued to be hypoxic with activities her oxygenation went down to 70s with a without oxygen Patient appears to be very weak and probably needing rehab next 03/24 Physical therapy evaluated and recommended patient need subacute rehab Review of systems Constitutional: No reported fatigue no chills, no fever Cardiovascular: no chest pain, no palpitations Respiratory: Cough and dyspnea and some yellow sputum production improved but still having thick secretions Gastrointestinal: no nausea and stil have abdominal discomfort. Neurological: no focal weakness or numbness Psychiatric: no anxiety or depression Physical exam Head: No bruises, normal-appearing nontraumatic Eyes: normal appearance, no scleral icterus. Neck: full ROM Respiratory: Crackles-improving Cardiovascular: normal rate and rhythm, S1, S2. GI/Abdominal: soft, nontender, no guarding. Extremities: full range of motion, nontender. Neurological: CN II-XII intact, intact motor, intact sensation. Psychiatric: normal mood. Skin: warm, normal color Constitutional Vitals: Vital Signs Temp Pulse Resp BP Pulse Ox 97.8 F 72 20 162/76 99 03/24/22 08:00 03/24/22 08:00 03/24/22 08:00 03/24/22 08:00 03/24/22 08:00 Period Temp Pulse Resp BP Sys/Echavarria Pulse Ox Last 24 Hr 97 F-98.3 F 67-83 16-20 132-162/76-80 88-99 Intake and Output 03/23/22 03/24/22 03/24/22 21:59 05:59 13:59 Intake Total 1040 100 850 Balance 1040 100 850 Weight 48.126 kg Intake & Output: Intake & Output 03/23/22 03/24/22 03/24/22 21:59 05:59 13:59 Intake Total 1040 100 850 Balance 1040 100 850 Weight 48.126 kg Intake: IV 50 Rocephin 2 gm In Dextrose 5% in 50 Water 50 ml @ 100 mls/hr IV Q24H [facility] Rx#:[id number] Oral 1040 100 800 Other: Meal Dinner Breakfast Percent of Meal Consumed 100% 75% Feeding Ability Independent # Voids 1 1 2 OBJ DATA Labs CBC & Chem 7: 03/24/22 05:13 03/24/22 05:13 Labs: Abnormal Lab Results 03/24/22 03/24/22 03/23/22 05:13 05:13 05:43 Hgb 10.9 L Neut % (Auto) Lymph % (Auto) Lymph # (Auto) [place] # (Auto) 0.93 H Sodium Chloride 95 L 93 L Carbon Dioxide 32 H 32 H Anion Gap 6.0 L Creatinine 0.5 L 0.4 L Glucose 109 H Total Protein 5.4 L 5.8 L Globulin 2.0 L 03/23/22 03/22/22 03/22/22 05:43 05:45 05:45 Hgb Neut % (Auto) 80.6 H Lymph % (Auto) 11.2 L Lymph # (Auto) 1.48 L 1.03 L [place] # (Auto) Sodium 129 L Chloride 87 L Carbon Dioxide 31 H Anion Gap Creatinine 0.4 L Glucose Total Protein Globulin Meds: Medications Acetaminophen (Acetaminophen 325 Mg Tablet) 650 mg PO Q6HP PRN; Protocol PRN Reason: Per Pain Protocol/Fever > 101 Hydrocodone Bitart/Acetaminophen (Hydrocodone/Apap 5/325mg Tablet) 1 tab PO Q6HP PRN; Protocol PRN Reason: Per Pain Protocol Last Admin: 05/29/22 22:18 Dose: 1 tab Documented by: Al Hydrox/Mg Hydrox/Simethicone (Mag Hydrox/Al Hydrox/Simeth 30 Ml Oral.Susp) 30 ml PO Q6HP PRN PRN Reason: Dyspepsia Albuterol Sulfate (Albuterol Sulfate 2.5 Mg/3 Ml Nebulizer) 2.5 mg NEB Q2HP PRN PRN Reason: Shortness Of Breath Albuterol/Ipratropium (Ipratropium/Albuterol 3 Ml Ampul.Neb) 3 ml NEB Q6HRT [facility] Last Admin: 03/24/22 07:30 Dose: 3 ml Documented by: Bisacodyl (Bisacodyl 10 Mg Supp.Rect) 10 mg [place] Q2-3DAYS PRN PRN Reason: Constipation Calcium Carbonate/Glycine (Calcium Carbonate 500 Mg Tab.Chew) 1,000 mg CHEWED Q4HP PRN PRN Reason: Dyspepsia Diltiazem HCl (Diltiazem 25 Mg/5 Ml Vial) 10 mg IV Q4HP PRN PRN Reason: Tachyarrhythmias Docusate Sodium (Docusate Sodium 100 Mg Capsule) 100 mg PO BID [facility] Last Admin: 03/24/22 07:22 Dose: Not Given Documented by: Enoxaparin Sodium (Enoxaparin 40 Mg/0.4 Ml Syringe) 40 mg SQ DAILY [facility] Last Admin: 03/24/22 07:24 Dose: Not Given Documented by: Hydralazine HCl (Hydralazine 20 Mg/Ml Vial) 10 mg IV Q4-6HP PRN PRN Reason: Hypertension Ceftriaxone Sodium 2 gm/ (Dextrose) 50 mls @ 100 mls/hr IV Q24H [facility] Last Infusion: 03/24/22 09:46 Dose: Infused Documented by: Magnesium Hydroxide (Magnesium Hydroxide 30 Ml Oral.Susp) 30 ml PO DAILYP PRN PRN Reason: Constipation Melatonin (Melatonin 3 Mg Tablet) 3 mg PO HSP PRN PRN Reason: Insomnia Last Admin: 03/23/22 22:19 Dose: 3 mg Documented by: Ondansetron HCl (Ondansetron 4 Mg/2 Ml Vial) 4 mg IV Q6HP PRN PRN Reason: Nausea And Vomiting Pantoprazole Sodium (Pantoprazole 40 Mg Tablet) 40 mg PO QAMAC [facility] Last Admin: 03/24/22 07:22 Dose: Not Given Documented by: Prednisone (Prednisone 20 Mg Tablet) 20 mg PO QAC [facility] Last Admin: 03/24/22 09:09 Dose: 20 mg Documented by: Prochlorperazine (Prochlorperazine 10 Mg/2 Ml Vial) 5 mg IV Q4HP PRN PRN Reason: Nausea And Vomiting Quetiapine Fumarate (Quetiapine 25 Mg Tablet) 12.5 mg PO HSP PRN PRN Reason: iNSOMNIA-2nd option Senna (Sennosides 1 Tablet) 2 tab PO HS [facility] Last Admin: 03/23/22 20:38 Dose: Not Given Documented by: Sodium Chloride (0.9 % Sodium Chloride 10 Ml Syringe) 10 ml IV Q8 [facility] Last Admin: 03/24/22 06:04 Dose: 10 ml Documented by: A/P Narrative Plan of Treatment: Acute hypoxemic respiratory failure Community-acquired pneumonia Obstructive airway disease-exacerbation History of chronic leg edema denied any history of CHF She presented with a yellow-green sputum worsening cough and hypoxia Continue ceftriaxone and azithromycin Continue weaning her oxygen need Procalcitonin elevated Sputum gram stain ligoozc-wyqq-gleyfknc coccobacilli-further sensitivity pending Blood cultures so far negative COVID-19 PCR negative History of chronic leg edema No evidence of congestive heart failure Recent echocardiogram showing normal biventricular systolic function mild pulmonary hypertension otherwise unremarkable Essential hypertension Monitor her blood pressure and restart home medications Severe protein calorie malnutrition Encourage patient to good oral intake Follow-up with the dietitian DVT prophylaxis-subcu Lovenox CODE STATUS-full code Expect length of stay 1-2 midnights Discharge plan-probably need SNF versus home health Time Spent With Patient Time: Total time spent is greater than 50% in coordination of care (as documented) at patient's floor/unit and/or counseling patient: QUALITY VTE Deep Vein Thrombosis/Pulmonary Embolism Present on Admission: No
[2022-03-24] MEDS: HYDROcodone/APAP 5/325MG TABLET PO PRN (19:50)
[2022-03-24] MEDS: MELATONIN 3 MG TABLET PO PRN (19:53)
[2022-03-24] MEDS: SENNOSIDES 1 TABLET PO SCH (19:53)
[2022-03-25] MEDS: IPRATROPIUM/ALBUTEROL 3 ML AMPUL.NEB NEB SCH ×2 (01:00→07:03)
[2022-03-25] MEDS: 0.9 % SODIUM CHLORIDE 10 ML SYRINGE IV SCH (05:27)
[2022-03-25 06:37] LABS: Basophils # (Auto) 0.07 K/mcL (0.00-0.30); Basophils % (Auto) 0.9 % (0.0-2.0); Eosinophils # (Auto) 0.13 K/mcL (0.00-0.70); Eosinophils % (Auto) 1.7 % (0.0-7.0); Hematocrit 39.3 % (34.1-44.9); Hemoglobin 11.9 g/dL (11.2-15.7); Lymphocytes # (Auto) 1.63 K/mcL (1.50-4.80); Lymphocytes % (Auto) 21.4 % (15.5-49.0); Mean Cell Volume 100.3 fL (80.0-100.0); Mean Corpuscular HGB Conc 30.3 g/dL (31.0-36.0); Mean Platelet Volume 8.9 fL (7.4-10.4); Monocytes # (Auto) 0.72 K/mcL (0.10-0.90); Monocytes % (Auto) 9.5 % (1.0-12.0); Neutrophils % (Auto) 66.5 % (38.0-78.0); Platelet Count 407 K/mcL (140-440); RBC 3.92 M/mcL (3.59-5.38); Red Cell Distribution Width 13.2 % (11.5-14.5); WBC 7.6 K/mcL (4.5-11.0)
[2022-03-25] MEDS: PANTOPRAZOLE 40 MG TABLET PO SCH (06:38)
[2022-03-25 07:04] LABS: ALT/SGPT 23 U/L (<40); AST/SGOT 30 U/L (<32); Albumin 3.4 gm/dL (3.2-5.2); Albumin/Globulin Ratio 1.4 (1.0-2.3); Alkaline Phosphatase 70 U/L (39-117); Bilirubin,Total 0.2 mg/dL (0.1-1.0); Blood Urea Nitrogen 11 mg/dL (8-23); Calcium 9.4 mg/dL (8.6-10.4); Carbon Dioxide 33 mmol/L (22-30); Chloride 93 mmol/L (96-108); Globulin 2.5 gm/dL (2.2-3.7); Glomerular Filtration Rate 97; Glucose 87 mg/dL (70-105)
[2022-03-25] MEDS: DOCUSATE SODIUM 100 MG CAPSULE PO SCH (07:52)
[2022-03-25] MEDS: ENOXAPARIN 40 MG/0.4 ML SYRINGE SQ SCH (07:52)
[2022-03-25] MEDS: predniSONE 20 MG TABLET PO SCH (09:08)
[2022-03-25] MEDS: cefTRIAXone 2 GM in DEXTROSE 5% IN WATER 50 ML IV SCH (09:08)
--- NOTE | 2022-03-25 10:36 | Discharge Summary ---
Discharge Provider Provider IMPORTANT FOLLOW-UP INFORMATION FOR PCP: Patient information: Note initiated : 03/25/22 at 10:36 am Service Date, if different from initiated Date: [] Patient: Yvette Lopez 81 y/o F admitted on 03/20/22 for Shortness of breath. Chief Complaint: [] Date of admission: 03/20/22 15:29 Discharge date: 03/25/22 Primary care physician: Matthew Siddiqui DO Consults: 03/20/22 Consult to Physician [CONS] Stat Comment: Consulting Provider: Crista Parekh Reason For Exam: Physician to Consult COURSE Hospital Course Hospital course: 81-year-old female with a history of chronic lower extremity edema, essential hypertension, previous history of reported pneumonia was brought to the ER with complaints of shortness of breath and productive cough and green-yellow sputum for the last 1 week patient was seen by the primary care provider 2 days ago started on doxycycline without any improvement and patient was transferred to the ER for further management upon arrival patient had history of chronic lower extremity edema no acute worsening patient denied any history congestive heart failure. Her work-up in the emergency room showed evidence of pneumonia on chest x-ray her proBNP was slightly elevated and also given 1 dose of Lasix in the ER and admitted for further management. Patient was hypoxic 87% on room air needing nasal cannula oxygen 03/21 Oxygenation improving Patient is more alert awake answering questions Continued having cough improving Sputum culture blood culture pending 03/22 Patient oxygenation improving Still needing 2 to 3 L of nasal cannula oxygen Started prednisone 20 mg daily yesterday Continued DuoNebs and albuterol 03/23 Patient continued to be hypoxic with activities her oxygenation went down to 70s with a without oxygen Patient appears to be very weak and probably needing rehab next 03/24 Physical therapy evaluated and recommended patient need subacute rehab 03/25 Patient will be discharged to SNF Continue prednisone 20 mg 5 more days Continue albuterol inhaler Continue antibiotics 5 more days cefuroxime and doxycycline Review of systems Constitutional: No reported fatigue no chills, no fever Cardiovascular: no chest pain, no palpitations Respiratory: Cough and dyspnea and some yellow sputum production improved but still having thick secretions Gastrointestinal: no nausea and stil have abdominal discomfort. Neurological: no focal weakness or numbness Psychiatric: no anxiety or depression Physical exam Head: No bruises, normal-appearing nontraumatic Eyes: normal appearance, no scleral icterus. Neck: full ROM Respiratory: Crackles-improving Cardiovascular: normal rate and rhythm, S1, S2. GI/Abdominal: soft, nontender, no guarding. Extremities: full range of motion, nontender. Neurological: CN II-XII intact, intact motor, intact sensation. Psychiatric: normal mood. Skin: warm, normal color Acute hypoxemic respiratory failure Community-acquired pneumonia Obstructive airway disease-exacerbation History of chronic leg edema denied any history of CHF She presented with a yellow-green sputum worsening cough and hypoxia Continue ceftriaxone and azithromycin Continue weaning her oxygen need Procalcitonin elevated Sputum gram stain [id number] coccobacilli-further sensitivity pending Blood cultures so far negative COVID-19 PCR negative History of chronic leg edema No evidence of congestive heart failure Recent echocardiogram showing normal biventricular systolic function mild pulmonary hypertension otherwise unremarkable Essential hypertension Monitor her blood pressure and restart home medications Severe protein calorie malnutrition Encourage patient to good oral intake Follow-up with the dietitian Discharge diagnosis: Community-acquired pneumonia, obstructive airway disease exacerbation Time Spent with Patient Time attestation: Total time spent providing and/or coordinating discharge services: Time spent: Greater than 30 minutes EXAM Constitutional Vitals: Temp Pulse Resp BP Pulse Ox 97.4 F 77 20 150/80 95 03/25/22 07:22 03/25/22 07:22 03/25/22 07:22 03/25/22 07:22 03/25/22 07:22 Discharge Data Data Completed and Pending Labs on day of discharge: Labs from last 24 hours 03/25/22 03/25/22 05:21 05:21 WBC 7.6 RBC 3.92 Hgb 11.9 Hct 39.3 MCV 100.3 H MCH 30.4 MCHC 30.3 L RDW 13.2 Plt Count 407 MPV 8.9 Neut % (Auto) 66.5 Lymph % (Auto) 21.4 [place] % (Auto) 9.5 Eos % (Auto) 1.7 Baso % (Auto) 0.9 Lymph # (Auto) 1.63 [place] # (Auto) 0.72 Eos # (Auto) 0.13 Baso # (Auto) 0.07 Absolute Neutrophils 5.05 Sodium 132 L Potassium 4.4 Chloride 93 L Carbon Dioxide 33 H Anion Gap 6.0 L BUN 11 Creatinine 0.4 L GFR Calculation 97 Glucose 87 Calcium 9.4 Magnesium 2.4 Total Bilirubin 0.2 AST 30 ALT 23 Alkaline Phosphatase 70 Total Protein 5.9 Albumin 3.4 Globulin 2.5 Albumin/Globulin Ratio 1.4 Discharge Plan Patient/Caregiver Discharge Instructions Activity: increase activity as tolerated Diet: Regular Diet Activity Restrictions/Additional Instructions: Follow-up with the primary care provider in 2 weeks Prescriptions: New prednisone 20 mg Tablet 20 mg PO QAMCC 5 Days Qty: 5 0RF cefuroxime axetil 500 mg tablet 500 mg PO BID Qty: 10 0RF Continued albuterol sulfate [ProAir HFA] 90 mcg/actuation HFA aerosol inhaler 2 puff INHALATION Q6H PRN (Reason: shortness of breath or wheezing) Qty: 18 3RF doxycycline hyclate 100 mg tablet 100 mg PO BID Qty: 20 0RF Label Comments: Pt had only taken 2 doses before coming to hospital Discontinued hydrocodone-acetaminophen 5-325 mg tablet 1 tab PO BID PRN (Reason: pain) Qty: 30 0RF Follow Up Plan Follow up with: Matthew Siddiqui DO [Primary Care Provider] - Patient Disposition: Xfer [facility] Plan of Treatment: Acute hypoxemic respiratory failure Community-acquired pneumonia Obstructive airway disease-exacerbation History of chronic leg edema denied any history of CHF She presented with a yellow-green sputum worsening cough and hypoxia Continue ceftriaxone and azithromycin-changed to cefuroxime and continue doxycycline Continue weaning her oxygen need Procalcitonin elevated Sputum gram stain [id number] coccobacilli Blood cultures so far negative COVID-19 PCR negative History of chronic leg edema No evidence of congestive heart failure Recent echocardiogram showing normal biventricular systolic function mild pulmonary hypertension otherwise unremarkable Essential hypertension Monitor her blood pressure and restart home medications Severe protein calorie malnutrition Encourage patient to good oral intake Follow-up with the dietitian DVT prophylaxis-subcu Lovenox CODE STATUS-full code Discharge plan-SNF Prognosis: Good I certify that the patient requires SNF services: Yes Overall status at discharge: patient is not back to baseline Discharge Orders: Discharge Order (Routine); Ordered 03/25/22 Ordered By: Crista CORDERO VTE Deep Vein Thrombosis/Pulmonary Embolism Present on Admission: No
== END 2022-03-25 11:43 | DRG 193 ==
LOC: ED 08:59 → MEDSUR 15:29
PROVIDERS: ADMIT Internal Medicine; ATTEND Internal Medicine